=== PATIENT | female | born 1975 | race Caucasian/White ===

== ENCOUNTER 2017-05-25 17:59 | Day surgery (SDC) | payer OTHER ==
[2017-05-25 18:45] VITALS: BMI 25.0
--- NOTE | 2017-05-25 19:10 | PDOC.EVN ---
Event Note - Event Note Event Note: 05/25/17 @ 1905: Patient has full HANDWRITTEN H&P in CHART. Triage note in L&D. Patient sent by Guerline Bob for PTL eval at 29 weeks. Prior CS X2. No HX PTL. No recent sexual activity.NO VB, NO ROM. No Trauma. Review of systems: completed, and per HPI. Past med: negative. Surg: CS X 2 (last 2 deliveries) ALL: none Social: negative PE: Afebrile, vitals wnl Pelvic deferred until after FFN and cervical length sono. Monitors: FHTS 130-140s, moderate variability. [place] with irregular ctx. Assessment: Threatened PTL at 29 weeks, prior CS X2. Plan: 1. FFN 2. Cervical length sono 3. Sono for EFW 4. IVF hydrate 5. Cath UA 6. Await CBC, FFN
[2017-05-25] MEDS ORDERED: Lactated Ringer's 1,000 ML IV SCH (19:15)
--- NOTE | 2017-05-25 19:33 | PDOC.EVN ---
Event Note - Event Note Event Note: 05/25/17 @ 1930: Sono preliminary: Transabdominal screen for cervical length: 4cm (TVU not done as screen was grossly normal). I was present for sono. No funneling. No previa, placenta appears anterior. EFW and FFN pending.
[2017-05-25 19:58] LABS: #Eosinphils 0.1 thou/uL (0.0-0.7); #Lymphocytes 2.4 thou/uL (1.20-3.40); #Monocytes 0.7 thou/uL (0.11-0.59); #Neutrophils 4.1 thou/uL (1.40-6.50); %Basophils 0.6 % (0.0-1.0); %Eosinophils 1.4 % (0.0-10.0); %Lymphocytes 32.8 % (21.0-51.0); %Monocytes 9.3 % (0.0-10.0); Hematocrit 39.4 % (36.0-47.0); Mean Platelet Volume 7.2 fL (7.4-10.4); Red Blood Cell (RBC) Count 4.13 mill/uL (4.20-5.40); White Blood Cell (WBC) Count 7.3 thou/uL (4.8-10.8)
--- NOTE | 2017-05-25 20:03 | ULT ---
OBSTETRIC SONOGRAM LIMITED 05/25/17 HISTORY: Third trimester . labor. Evaluate for presentation and size and placental location. FINDINGS: Multiple transabdominal sonographic views of the gravid uterus show a single intrauterine gestation i n cephalic presentation. The cervix is closed and 4.8 cm in length. Grade 2 placenta is anterior. No evidence of placenta previa. Amniotic fluid is within normal limits with KENDALL of 13.2. Four chamber he art shows motion at 135 beats per minute. MEASUREMENTS ARE FOLLOWS: Biparietal diameter 31 weeks, 2 days Head circumference 31 weeks, 3 days Abdominal circumference 30 weeks, 6 days Femur length 31 weeks, 4 days Estimated date of delivery based on today's sonogram is 07/25/17. Hadlock percentile equals 94%. Estimated weight is 1708 grams (3 lb. 12 oz.). IMPRESSION: Single viable intrauterine gestation with estimated gestational age based on today's sonogram of 31 w eeks, 2 days. POS: [facility]
--- NOTE | 2017-05-25 20:09 | PDOC.EVN ---
Event Note - Event Note Event Note: 05/25/17 @ 2007: FFN negative.
[2017-05-25] MEDS ORDERED: Terbutaline Sulfate 1 MG/ML VIAL SC SCH (20:15)
--- NOTE | 2017-05-25 20:15 | PDOC.EVN ---
Event Note - Event Note Event Note: 05/25/17 @ 2013: Will order one time terb X 1 for conservative management. FHTs reactive.UA still pending.
[2017-05-25 20:30] LABS: Bilirubin Negative (Negative); Blood, Urine Negative (Negative); Glucose, Urine (Dipstick) Negative (Negative); Ketone, Urine 40 mg/dL (Negative); Nitrite Negative (Negative); Protein, Urine (Dipstick) Negative (Neg-Trace); Urobilinogen 0.2 mg/dL (0.2-1.0)
[2017-05-25 20:32] LABS: Bacteria/HPF 1+ HPF (None Seen); Hyaline Casts/LPF 4-6 HYALINE CAST LPF (0-3 Hyaline); RBC/HPF 0-3 HPF (0-3); Squamous Epithelial 0-3 HPF (0-3)
--- NOTE | 2017-05-25 21:05 | PDOC.EVN ---
Event Note - Event Note Event Note: 05/25/17 @ 2104: ASB..will treat with macrobid X 7 days. Recheck patient in clinic in 2 days.
[2017-05-26] MEDS ORDERED: FLU VACC QS2017-18 36 mo. & older 0.5 ML SYRINGE IM ONE (09:00)
== END 2017-05-25 21:24 | disposition home or self-care (01) ==
LOC: L&D/OP 17:59
PROVIDERS: ATTEND Family Medicine
DX: O60.03 Preterm labor without delivery, third trimester (principal); Z3A.29 29 weeks gestation of pregnancy; Z79.899 Other long term (current) drug therapy; Z98.890 Other specified postprocedural states
CPT/HCPCS: 36415; 76815; 81003; 81015; 82731; 85025; J3105

== ENCOUNTER 2017-08-03 05:21 | Inpatient (IN) | payer OTHER ==
[2017-08-03] MEDS ORDERED: Ondansetron HCl/PF 4 MG/2 ML Vial IVP PRN ×3 (05:25→10:59)
[2017-08-03] MEDS ORDERED: CEFAZOLIN/Water 2 GM/20 ML SYRINGE SLOW IVP SCH (05:25)
[2017-08-03] MEDS ORDERED: Promethazine HCl 25 MG/ML VIAL IM PRN ×2 (05:25→10:59)
[2017-08-03] MEDS ORDERED: Bicitra 30 ML UDCUP PO SCH (05:25)
[2017-08-03] MEDS: Lactated Ringer's 1,000 ML IV SCH ×3 (05:30→17:19)
[2017-08-03 06:34] LABS: Hemoglobin 12.9 g/dL (12.0-16.0); Mean Corpuscular HGB CONC 33.4 g/dL (32.0-36.0); Mean Corpuscular Hemoglobin 31.4 pg (27.0-31.0); Mean Corpuscular Volume 93.8 fl (81.0-99.0); Mean Platelet Volume 7.6 fL (7.4-10.4); Platelet Count 156 thou/uL (130-400); RBC Distribution Width 12.6 % (11.5-14.5); Red Blood Cell (RBC) Count 4.11 mill/uL (4.20-5.40); White Blood Cell (WBC) Count 6.8 thou/uL (4.8-10.8)
[2017-08-03 06:36] VITALS: BMI 26.6
[2017-08-03 07:05] LABS: Syphilis Antibody Nonreactive (Nonreactive); Syphilis Antibody Index 0.04 S/CO (<1.00 Non-Reactive)
[2017-08-03 07:06] LABS: HBSAg Index 0.22 S/CO (0-0.99); Hep B Surf Ag Non-Reactive S/CO (NonReactive)
[2017-08-03] MEDS ORDERED: Ondansetron HCl/PF 4 MG/2 ML Vial ONE ×2 (07:16→15:00)
[2017-08-03] MEDS ORDERED: PHENYLEPHRINE-NS 100 MCG/ML 10 ML SYRINGE ONE ×2 (07:16→15:00)
[2017-08-03] MEDS ORDERED: Morphine PF 1 MG/ML SYR ONE (07:16)
[2017-08-03] MEDS ORDERED: Oxytocin 10 UNITS/ML VIAL ONE (07:16)
--- NOTE | 2017-08-03 09:11 | OP ---
DATE OF PROCEDURE: 08/03/2017 PREOPERATIVE DIAGNOSIS: Term intrauterine with previous section x2. POSTOPERATIVE DIAGNOSES: Term intrauterine with previous section x2, status post delivery. PROCEDURE: Repeat low transverse section. SURGEON: Guerline Bob M.D. REHABILITATION SERVICES COUNSELOR: Joseph Bob M.D. ANESTHESIA: Spinal anesthetic. COMPLICATIONS: None. PROCEDURE IN DETAIL: After adequate spinal anesthetic, the patient was placed in the supine position . A wedge was placed under her right flank. A Sommers catheter was placed and the abdomen was prepped and draped in the usual sterile technique. A Pfannenstiel incision was made through the old scar wi thout difficulty. Subcutaneous tissue opened with sharp dissection. Fascia opened with sharp dissec tion. Peritoneum opened with sharp and blunt dissection, noted that the abdomen was filled with a gr avid uterus. A bladder blade was placed and a low transverse incision was made on the uterus. Membr anes were ruptured. Clear fluid was encountered. A viable female was delivered from vertex p resentation. Infant breathed and cried spontaneously. The cord was clamped and cut, and the was handed to care of the neonatology team. Cord blood was obtained and the placenta was delivered m anually and appeared intact. Uterus was taken external to the abdominal cavity. A wet lap was place d over the uterus and a second lap used to wipe clean the uterus. There was no bleeding. The hyster otomy edges were grasped with ring forceps and the hysterotomy was closed in one layer with 0 Monocry l with good hemostasis. The uterus was replaced into the abdominal cavity. There was no bleeding fr om the peritoneal edges. Peritoneum was then closed using 2-0 Vicryl and the subcutaneous tissue was closed using 2-0 chromic and the fascia was closed using 0 Vicryl in continuous fashion. Sponge and instrument counts were correct. There were no bleeders in the subcutaneous tissue and the skin was closed using pete. The patient tolerated the procedure well to go to the recovery room in good co ndition with estimated blood loss 500 mL. Noted that the baby is a viable female infant. Apgars 8 a t 1 minute and 9 at 5 minutes. Weight pending. To go to level 1 nursery.
[2017-08-03] MEDS ORDERED: LR / Pitocin 40 units/1000 ml 1,000 ML ONE (09:47)
[2017-08-03] MEDS ORDERED: HYDROcodone/Acetaminophen 5/325 mg Tablet PO PRN (10:54)
[2017-08-03] MEDS ORDERED: Acetaminophen/Codeine 30-300mg Tablet PO PRN (10:54)
[2017-08-03] MEDS ORDERED: diphenhydrAMINE 25 MG CAP PO PRN (10:54)
[2017-08-03] MEDS ORDERED: Ferrous Sulfate 325 MG TAB PO SCH ×2 (10:54→11:15)
[2017-08-03] MEDS ORDERED: Docusate Calcium (SURFAK) 240 MG CAP PO SCH ×2 (10:54→11:15)
[2017-08-03] MEDS ORDERED: Bisacodyl 10 MG SUPP PR PRN (10:54)
[2017-08-03] MEDS ORDERED: Prenatal Vitamin 1 TAB PO SCH ×2 (10:54→11:30)
[2017-08-03] MEDS ORDERED: Acetaminophen 325 MG TAB PO PRN (10:54)
[2017-08-03] MEDS ORDERED: Lanolin Ointment 7 GM TUBE TOP PRN (10:54)
[2017-08-03] MEDS ORDERED: Eucerin (Mineral Oil/Petrolatum,White) 30 gm Jar TOP PRN (10:59)
[2017-08-03] MEDS ORDERED: Naloxone HCl 0.4 mg/ml Vial IV PRN (10:59)
[2017-08-03] MEDS ORDERED: Ketorolac Tromethamine 30 MG/ML VIAL IVP PRN (10:59)
[2017-08-03] MEDS ORDERED: diphenhydrAMINE 50 MG/ML VIAL IVP PRN (10:59)
[2017-08-03] MEDS ORDERED: Promethazine HCl 25 MG SUPP PR PRN (10:59)
[2017-08-03] MEDS ORDERED: Naloxone HCl 0.4 mg/ml Vial IVP PRN ×2 (10:59)
[2017-08-03] MEDS ORDERED: Communication Order-Pharmacy FS SCH (11:00)
[2017-08-03] MEDS: Ibuprofen 800 MG TAB PO SCH ×2 (16:21→21:02)
[2017-08-03] MEDS: Simethicone Chewable 80 MG TAB PO PRN (17:19)
[2017-08-03] MEDS: Ferrous Sulfate 325 MG TAB PO SCH (21:01)
[2017-08-03] MEDS: Docusate Calcium (SURFAK) 240 MG CAP PO SCH (21:01)
[2017-08-04 07:57] LABS: Hemoglobin 11.7 g/dL (12.0-16.0); Mean Corpuscular HGB CONC 33.3 g/dL (32.0-36.0); Mean Corpuscular Hemoglobin 31.3 pg (27.0-31.0); Mean Corpuscular Volume 94.2 fl (81.0-99.0); Mean Platelet Volume 7.5 fL (7.4-10.4); Platelet Count 118 thou/uL (130-400); RBC Distribution Width 12.5 % (11.5-14.5); Red Blood Cell (RBC) Count 3.74 mill/uL (4.20-5.40); White Blood Cell (WBC) Count 8.8 thou/uL (4.8-10.8)
[2017-08-04] MEDS: Ferrous Sulfate 325 MG TAB PO SCH ×2 (09:20→21:33)
[2017-08-04] MEDS: Docusate Calcium (SURFAK) 240 MG CAP PO SCH ×2 (09:23→20:06)
[2017-08-04] MEDS: Simethicone Chewable 80 MG TAB PO PRN ×2 (09:23→20:06)
[2017-08-04] MEDS: Prenatal Vitamin 1 TAB PO SCH (09:24)
[2017-08-04] MEDS: Ibuprofen 800 MG TAB PO SCH ×3 (14:19→20:06)
[2017-08-05] MEDS: Ibuprofen 800 MG TAB PO SCH (05:00)
[2017-08-05] MEDS: Prenatal Vitamin 1 TAB PO SCH ×2 (09:53→09:55)
[2017-08-05] MEDS: Docusate Calcium (SURFAK) 240 MG CAP PO SCH (09:53)
[2017-08-05] MEDS: Simethicone Chewable 80 MG TAB PO PRN (09:54)
[2017-08-05] MEDS: Ferrous Sulfate 325 MG TAB PO SCH (09:54)
[2017-08-05 10:15] VITALS: BP 99/57; TEMP 96.4
== END 2017-08-05 12:30 | disposition home or self-care (01) | DRG 766 ==
LOC: L&D 05:21 → 3SW 10:53
PROVIDERS: ADMIT Family Medicine; ATTEND Family Medicine
PROC: 10D00Z1 Extraction of Products of Conception, Low, Open Approach (ICD-10-PCS; principal; 2017-08-03)
DX: O34.219 Maternal care for unspecified type scar from previous cesarean delivery (principal); Z37.0 Single live birth; Z3A.39 39 weeks gestation of pregnancy
CPT/HCPCS: 36415; 51702; 85027; 86780; 86850; 86900; 86901; 87340; J2274; J2405; J2590